=== PATIENT | female | born 2000 | race Caucasian/White ===

== ENCOUNTER 2020-12-10 18:09 | Emergency (ER) | payer BC ==
[~2020-12-10] VITALS: Ht 160 cm; Wt 51.4 kg
[2020-12-10] MEDS ORDERED: EMGALITY120 MG/1 M SQ (18:22)
[2020-12-10] MEDS ORDERED: NEXPLANON68 MG ID (18:23)
[2020-12-10 18:48] VITALS: BP 113/69; PULSE 92; TEMP 98.3
== END 2020-12-10 18:48 | disposition home or self-care (01) ==
LOC: COL.ER 18:09
DX: H69.92 Unspecified Eustachian tube disorder, left ear (principal); J06.9 Acute upper respiratory infection, unspecified